=== PATIENT | male | born 1990 | race Caucasian/White ===

== ENCOUNTER 2016-11-14 11:10 | Emergency (ER) | payer OTHER ==
[2016-11-14 11:19] VITALS: BP 112/59
[2016-11-14] MEDS ORDERED: Ondansetron INJ* 2 MG/ML VIAL IV ONE (11:30)
[2016-11-14] MEDS ORDERED: NS 0.9% 1000 ML* 1,000 ML IV ONE (11:30)
--- NOTE | 2016-11-14 11:43 | ED ---
Influenza-Like Illness - HPI Summary HPI Summary: 26M presents with n/v and sinus congestion for 3 days. He admits to sore throat and headache. He admits to a dry cough. He denies any fever. He denies any diarrhea or chest pain, SOB, or abdominal pain. He has not taken anything for headache. He has been able to drink okay but anytime he eats anything he throws it up. He denies any blood in his urine or stool. - History of Current Complaint Chief Complaint: EDNauseaVomitDiarrh Time Seen by Provider: 11/14/16 11:27 - Allergy/Home Medications Allergies/Adverse Reactions: Allergies Allergy/AdvReac Type Severity Reaction Status Date / Time No Known Allergies Allergy Verified 11/14/16 11:16 PMH/Surg Hx/FS Hx/Imm Hx Endocrine/Hematology History: Denies: Hx Anticoagulant Therapy Cardiovascular History: Denies: Hx Angina Infectious Disease History: No Infectious Disease History: Denies: Traveled Outside the [place] in Last 30 Days - Family History Known Family History: Positive: Hypertension - Social History Alcohol Use: Occasionally Substance Use Type: Reports: None Smoking Status (MU): Unknown if Ever Smoked Review of Systems Negative: Fever Positive: Sore Throat, Nasal Discharge Negative: Chest Pain Positive: Cough. Negative: Shortness Of Breath Positive: Vomiting, Nausea. Negative: Abdominal Pain, Diarrhea Positive: Headache All Other Systems Reviewed And Are Negative: Yes Physical Exam Triage Information Reviewed: Yes Vital Signs On Initial Exam: Initial Vitals Temp Pulse Resp BP Pulse Ox 97.7 F 63 16 112/59 100 11/14/16 11:16 11/14/16 11:16 11/14/16 11:16 11/14/16 11:16 11/14/16 11:16 Vital Signs Reviewed: Yes Appearance: Positive: Well-Appearing Skin: Positive: Warm, Dry Head/Face: Positive: Normal Head/Face Inspection Eyes: Positive: Normal, Conjunctiva Clear ENT: Positive: Normal ENT inspection, Pharyngeal erythema - post nasal drip present, Nasal congestion. Negative: Tonsillar swelling, Tonsillar exudate Neck: Positive: Supple, Nontender, No Lymphadenopathy Respiratory/Lung Sounds: Positive: Clear to Auscultation, Breath Sounds Present Cardiovascular: Positive: Normal, RRR Abdomen Description: Positive: Nontender, Soft Bowel Sounds: Positive: Present Diagnostics - Vital Signs Vital Signs Temp Pulse Resp BP Pulse Ox 11/14/16 11:16 97.7 F 63 16 112/59 100 - Laboratory Result Diagrams: 11/14/16 11:35 11/14/16 11:35 Lab Statement: Any lab studies that have been ordered have been reviewed, and results considered in the medical decision making process. Flu Symptom Course/Dx - Course Course Of Treatment: 26M presents with cough, sinus congestion, sore throat, n/ v for three days. flu negative, labs WBC elevated, electrolytes normal, on exam lungs CTA, abdomen nontender, post nasal drip present, will treat supporatively , patient understnads and agrees with plan - Diagnoses Differential Diagnosis/HQI/PQRI: Positive: Bronchitis, Influenza, Pneumonia, Upper Respiratory Infection Provider Diagnoses: Upper respiratory infection Discharge - Discharge Plan Condition: Good Disposition: HOME Prescriptions: Ondansetron ODT TAB* [Zofran Odt TAB*] 4 mg PO Q6H PRN #15 tab.odt PRN Reason: Nausea Patient Education Materials: Upper Respiratory Infection (ED) Forms: *Work Release Referrals: [facility] [place] [facility] [Outside] Additional Instructions: Take zofran every 6 hours as needed for nausea Use saline in the nose for nosebleeds Use humidifier or place warm bowls of water around the room Take Tylenol and ibuprofen for pain/fever every 6 hours Increase fluid intake and eat small amounts of food as tolerated Establish care with primary care physician Return to ED if develop chest pain , shortness of breath, or any new or worsening symptoms
[2016-11-14 11:46] LABS: Hematocrit 43 % (42-52); Hemoglobin 14.9 g/dl (14.0-18.0); Mean Corpuscular HGB Conc 34 g/dl (31-36); Mean Corpuscular Hemoglobin 30 pg (27-31); Mean Corpuscular Volume 87 fL (80-94); Mean Platelet Volume 8 um3 (7.4-10.4); Red Cell Distribution Width 12 % (10.5-15); White Blood Count 12.2 10^3/ul (3.5-10.8)
[2016-11-14] MEDS ORDERED: Ketorolac INJ* 30 MG/ML 1 ML VIAL IV PUSH ONE (12:31)
[2016-11-14 12:51] LABS: Albumin 4.4 g/dL (3.2-5.2); BUN/Creatinine Ratio 13.8 (8-20); Calcium 9.6 mg/dL (8.6-10.3); EGFR African American 149.1 (>60); Globulin 2.8 g/dL (2-4); Potassium 4.2 mmol/L (3.5-5.0); Total Bilirubin 0.4 mg/dL (0.2-1.0); Total Protein 7.2 g/dL (6.4-8.9)
== END 2016-11-14 13:13 | disposition home or self-care (01) ==
LOC: ED 11:10
DX: J06.9 Acute upper respiratory infection, unspecified (principal)
CPT/HCPCS: 36415; 80053; 85025; 87502; 96374; 99283; J1885

== ENCOUNTER 2016-11-25 16:51 | Emergency (ER) | payer OTHER ==
[2016-11-25] MEDS ORDERED: Ibuprofen TAB* 600 MG PO ONE (17:26)
--- NOTE | 2016-11-25 17:34 | ED ---
Back Pain - HPI Summary HPI Summary: 26 male presents with complaints of low right back pain that began yesterday 11/24 and has increasingly gotten worse today. 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 Patient states the pain radiates down the right leg to the level of his knee. Admits to some numbness intermittently, denies tingling, saddle anesthesia and bladder/bowel incontinence. States he took 600mg ibuprofen last night and had very little relief. He has trouble walking due to pain but is able to. Able to bear weight. Has history of low back pain. Sitting and being bent over makes the pain better. Movement makes the pain worse. Had trouble sleeping last night. - History of Current Complaint Chief Complaint: EDBackInjuryPain Stated Complaint: BACK PAIN RADIATING DOWN LEG Hx Obtained From: Patient Onset/Duration: Sudden Onset Onset/Duration: Started Days Ago, Worse Since Timing: Constant Back Pain Location: Is Discrete @ - right lower back, Radiates To - right proximal lower extremity Severity Initially: Moderate Severity Currently: Severe Pain Intensity: 10 Pain Scale Used: 0-10 Numeric Character: Sharp, Aching, Throbbing, Spasmodic, Stiffness Aggravating Symptom(s): Movement, Lifting, Walking Alleviating Symptom(s): Rest, Position Associated Signs And Symptoms: Positive: Pain with Weight Bearing. Negative: Swelling, Redness, Bruising, Weakness, Numbness, Tingling, Abdominal Pain, Bladder Incontinence, Bowel Incontinence - Allergies/Home Medications Allergies/Adverse Reactions: Allergies Allergy/AdvReac Type Severity Reaction Status Date / Time No Known Allergies Allergy Verified 11/14/16 11:16 PMH/Surg Hx/FS Hx/Imm Hx Endocrine/Hematology History: Denies: Hx Anticoagulant Therapy Cardiovascular History: Denies: Hx Angina - Surgical History Surgery Procedure, Year, and Place: none Infectious Disease History: No Infectious Disease History: Denies: Traveled Outside the [place] in Last 30 Days - Family History Known Family History: Positive: Hypertension - Social History Alcohol Use: Occasionally Substance Use Type: Reports: None Smoking Status (MU): Current Every Day Smoker Review of Systems Constitutional: Negative Cardiovascular: Negative Respiratory: Negative Gastrointestinal: Negative Positive: Arthralgia, Myalgia - low back Skin: Negative Neurological: Negative Psychological: Normal All Other Systems Reviewed And Are Negative: Yes Physical Exam Triage Information Reviewed: Yes Vital Signs On Initial Exam: Initial Vitals Temp Pulse Resp BP Pulse Ox 97.9 F 81 18 117/71 100 11/25/16 16:52 11/25/16 16:52 11/25/16 16:52 11/25/16 16:52 11/25/16 16:52 Vital Signs Reviewed: Yes Appearance: Positive: Well-Appearing - smiling sitting in chair, Well-Nourished , Pain Distress - minimal, bent over, winces with movement Skin: Positive: Warm, Skin Color Reflects Adequate Perfusion, Dry Head/Face: Positive: Normal Head/Face Inspection Eyes: Positive: Normal ENT: Positive: Normal ENT inspection, Hearing grossly normal Neck: Positive: Supple, Nontender Respiratory/Lung Sounds: Positive: Clear to Auscultation, Breath Sounds Present Cardiovascular: Positive: Normal, RRR, Pulses are Symmetrical in both Upper and Lower Extremities - 2+ pedal Abdomen Description: Positive: Nontender Musculoskeletal: Positive: Normal, Strength/ROM Intact - right lower extremity causes pain. however is able. left leg normal, Pain @ - palpation of right lower paraspinal muscles at level of L1-L4., Other - no bony deformities, crepitus, step-off or tenderness on palpation. no signs of edema, ecchymosis, erythema. Negative: Limited @, Interruption @ Neurological: Positive: Normal, Sensory/Motor Intact, Alert, Oriented to Person Place, Time, CN Intact II-III, Reflexes Intact, NV Bundle Intact Distally, Normal Gait - with pain Psychiatric: Positive: Normal, Affect/Mood Appropriate - Abdon Coma Scale Coma Scale Total: 15 Diagnostics - Vital Signs Vital Signs Temp Pulse Resp BP Pulse Ox 11/25/16 16:52 97.9 F 81 18 117/71 100 - Laboratory Lab Statement: Any lab studies that have been ordered have been reviewed, and results considered in the medical decision making process. Back Pain Course/Dx - Course Course Of Treatment: Given ibuprofen while in ED. Based on history and DIANE and PE findings does not meet requirments or appear to need an x-ray at this time. Appears to be all muscular. Will be given pain management and muscle relaxer to take at home. Rest, work note. Aware of worsening signs and symptoms. - Diagnoses Differential Diagnosis/HQI/PQRI: Positive: Herniated Disc, Strain, Sprain Provider Diagnoses: Lumbosacral strain, Low back pain Discharge - Discharge Plan Condition: Stable Disposition: HOME Prescriptions: Cyclobenzaprine TAB* [Flexeril 10 MG TAB*] 10 mg PO BID PRN #10 tab PRN Reason: Spasms Ibuprofen TAB* [Motrin TAB* 800 MG] 800 mg PO Q6H #25 tab Patient Education Materials: Low Back Strain (ED) Forms: *Work Release Referrals: [facility] [place] [facility] [Outside] Additional Instructions: Refrain from physical activity until pain subsides. Use pain as your guide. Take prescribed ibuprofen for pain every 6-8 hours as needed for the next couple of days. Take with food to avoid upset stomach. Take muscle relaxer before bed to reduce spasms and stiffness. You can not drive while taking this medication as it can make you drowsy. Use heat/ice. Rest. If symptoms worsen or you develop new symptoms such as numbness and tingling in your inner thighs, trouble urinating, increasing pain please seek medical attention promptly.
[2016-11-25 17:40] VITALS: BP 117/70
== END 2016-11-25 17:38 | disposition home or self-care (01) ==
LOC: ED 16:51
DX: S39.012A Strain of muscle, fascia and tendon of lower back, initial encounter (principal); M54.5 Low back pain; M54.9 Dorsalgia, unspecified; F17.210 Nicotine dependence, cigarettes, uncomplicated; X58.XXXA Exposure to other specified factors, initial encounter; Y93.9 Activity, unspecified; Y92.9 Unspecified place or not applicable
CPT/HCPCS: 99282; A9270-GY

== ENCOUNTER 2019-11-11 18:15 | Emergency (ER) | payer OTHER ==
[2019-11-11 18:49] LABS: Influenza B Molecular POSITIVE (Negative)
--- NOTE | 2019-11-11 19:07 | ED ---
Influenza-Like Illness - HPI Summary HPI Summary: 29-year-old male with no significant past medical history presents the emergency department today with a chief complaint of influenza-like illness. Patient states yesterday he began having body aches, cough, fever, nasal congestion, sore throat. Patient has taken Tylenol prior to arrival for his fever. Patient denies influenza immunization this year. Patient has possible exposure to influenza. Patient is otherwise well and denies chest pain, abdominal pain, nausea, vomiting, diarrhea, pain with urination, rash. Surgical history and family history is noncontributory. - History of Current Complaint Chief Complaint: EDFluSymptoms Time Seen by Provider: 11/11/19 18:55 Hx Obtained From: Patient Onset/Duration: Gradual Onset Severity: Moderate Associated Signs & Symptoms: Fever, Myalgia, Cough, Sore Throat, Nasal Congestion Related Hx: Possible Flu/Infectious Exposure - Allergy/Home Medications Allergies/Adverse Reactions: Allergies Allergy/AdvReac Type Severity Reaction Status Date / Time No Known Allergies Allergy Verified 11/11/19 18:21 Home Medications: Home Medications Ondansetron ODT TAB* [Zofran Odt TAB*] 4 mg PO Q6H PRN #15 tab.odt 11/14/16 [Rx] Cyclobenzaprine TAB* [Flexeril 10 MG TAB*] 10 mg PO BID PRN #10 tab 11/25/16 [Rx ] Ibuprofen TAB* [Motrin TAB* 800 MG] 800 mg PO Q6H #25 tab 11/25/16 [Rx] PMH/Surg Hx/FS Hx/Imm Hx Endocrine/Hematology History: Denies: Hx Anticoagulant Therapy Cardiovascular History: Denies: Hx Angina - Surgical History Surgery Procedure, Year, and Place: none Infectious Disease History: No Infectious Disease History: Denies: Traveled Outside the [place] in Last 30 Days - Family History Known Family History: Positive: Hypertension - Social History Alcohol Use: Occasionally Substance Use Type: Reports: None Smoking Status (MU): Current Every Day Smoker Review of Systems Positive: Fever, Fatigue Positive: Sore Throat, Nasal Discharge Negative: Chest Pain Positive: Cough. Negative: Shortness Of Breath Gastrointestinal: Negative Genitourinary: Negative Positive: Myalgia Skin: Negative Neurological/Mental Status: Negative Psychological: Normal All Other Systems Reviewed And Are Negative: Yes Physical Exam Triage Information Reviewed: Yes Vital Signs On Initial Exam: Initial Vitals Temp Pulse Resp BP Pulse Ox 97.7 F 120 19 116/83 96 11/11/19 18:18 11/11/19 18:18 11/11/19 18:18 11/11/19 18:18 11/11/19 18:18 Vital Signs Reviewed: Yes Appearance: Positive: Well-Appearing, No Pain Distress, Well-Nourished Skin: Positive: Warm, Skin Color Reflects Adequate Perfusion Eyes: Positive: EOMI, NORMAN ENT: Positive: Hearing grossly normal Respiratory/Lung Sounds: Positive: Clear to Auscultation, Breath Sounds Present Cardiovascular: Positive: RRR, S1, S2 Abdomen Description: Positive: Nontender, Soft Bowel Sounds: Positive: Present Musculoskeletal: Positive: Strength/ROM Intact Neurological: Positive: Sensory/Motor Intact, Alert, Oriented to Person Place, Time, Normal Gait, Facial Symmetry, Speech Normal Psychiatric: Positive: Normal, Affect/Mood Appropriate AVPU Assessment: Alert Procedures - Sedation Patient Received Moderate/Deep Sedation with Procedure: No Diagnostics - Vital Signs Vital Signs Temp Pulse Resp BP Pulse Ox 11/11/19 18:18 97.7 F 120 19 116/83 96 - Laboratory Lab Results: Lab Results 11/11/19 Range/Units 18:22 Influenza A (Rapid) Not Reportable Influenza B (Rapid) Positive H (Negative) Lab Statement: Any lab studies that have been ordered have been reviewed, and results considered in the medical decision making process. Flu Symptom Course/Dx - Course Course Of Treatment: Patient was evaluated in the emergency department today for influenza-like illness. Vitals noted. Patient given ibuprofen for fever. Influenza serology returned showing positive influenza B. Patient elected not to start Tamiflu. Patient discharged with outpatient follow-up. - Diagnoses Differential Diagnosis/HQI/PQRI: Positive: Bronchitis, Broncholiolitis, Influenza, Pneumonia, Upper Respiratory Infection Provider Diagnoses: Influenza B Discharge ED - Sign-Out/Discharge Documenting (check all that apply): Patient Departure - Discharge Plan Condition: Stable Disposition: HOME Patient Education Materials: Influenza (ED) Referrals: No Primary Care Phys,NOPCP [Primary Care Provider] - [facility] [Outside] - 3 Days Additional Instructions: You were seen in the emergency department today and diagnosed with influenza. This is an upper respiratory virus which causes cough, muscle aches, fever, nausea, trouble breathing. Viruses are self-limiting and will go away on their own. Be sure to stay hydrated and rest. You may take [id number] decongestants as needed for your symptoms as well as NyQuil at night to improve sleep. Take Tylenol every 6 hours as needed for fever. Please see your primary care physician in 5 days for further evaluation and management. Please do not return to work or school until 24 hours after your fever breaks. Please return to the emergency department immediately if you develop any new or worsening symptoms. - Billing Disposition and Condition Condition: STABLE Disposition: Home
[2019-11-11] MEDS ORDERED: Ibuprofen TAB* 600 MG PO ONE (19:08)
[2019-11-11 20:17] VITALS: BP 137/68
== END 2019-11-11 20:16 | disposition home or self-care (01) ==
LOC: ED 18:15
DX: J10.1 Influenza due to other identified influenza virus with other respiratory manifestations (principal); F17.200 Nicotine dependence, unspecified, uncomplicated
CPT/HCPCS: 99282; A9270-GY